=== PATIENT | male | born 1980 | race Two or more races ===

== ENCOUNTER 2017-03-08 14:23 | Emergency (ER) | payer BC ==
[~2017-03-08] VITALS: Ht 185.4 cm; Wt 135.6 kg
[2017-03-08 16:12] VITALS: BP 129/76
== END 2017-03-08 16:12 | disposition home or self-care (01) ==
LOC: ED 14:23
DX: R07.89 Other chest pain (principal); R06.02 Shortness of breath; F41.9 Anxiety disorder, unspecified; Z88.0 Allergy status to penicillin
CPT/HCPCS: J1885

== ENCOUNTER 2017-03-09 16:40 | Emergency (ER) | payer BC ==
[2017-03-09 18:30] VITALS: BP 120/79
== END 2017-03-09 18:30 | disposition home or self-care (01) ==
LOC: ED 16:40
DX: J03.90 Acute tonsillitis, unspecified (principal)
CPT/HCPCS: J0696; J1100